=== PATIENT | female | born 1975 | race Caucasian/White ===

== ENCOUNTER 2016-11-26 06:57 | Inpatient (IN) | payer SELFPAY ==
[~2016-11-26] VITALS: Ht 170.2 cm; Wt 81.0 kg
[~2016-11-26 06:57] MED LIST: PREN0.01 PO; VENTAER INH; ZOVI400T15 PO
[2016-11-26 07:42] VITALS: BP 121/79; PULSE 105
[2016-11-26 07:45] VITALS: RESP 17
[2016-11-26] MEDS ORDERED: OXYTOCIN 30 UNITS-500ML PREMIX 500 ML ONE (08:22)
[2016-11-26] MEDS ORDERED: LACTATED RINGER'S 1000 ML INJ 1,000 ML IV PRN (08:25)
[2016-11-26] MEDS ORDERED: LACTATED RINGER'S 1000 ML INJ 1,000 ML IV SCH (08:25)
[2016-11-26] MEDS ORDERED: LIDOCAINE HCL 1% 50 ML VIAL I-DERMAL PRN (08:30)
[2016-11-26] MEDS ORDERED: LIDOCAINE HCL 1% 50 ML VIAL INFIL PRN (08:30)
[2016-11-26] MEDS ORDERED: SODIUM CHLORID 0.9% 500 ML INJ 500 ML IV PRN (08:30)
[2016-11-26] MEDS ORDERED: OXYTOCIN 30 UNITS-500ML PREMIX 500 ML IV ONE ×2 (08:30→14:00)
[2016-11-26] MEDS ORDERED: MINERAL OIL 10 ML VIAL TOPICAL PRN (08:30)
[2016-11-26] MEDS ORDERED: CITRIC ACID-SODIUM CITRATE LIQ 30 ML UDC PO SCH (08:30)
[2016-11-26] MEDS ORDERED: OXYTOCIN 30 UNITS-500ML PREMIX 500 ML IV SCH (08:30)
[2016-11-26 08:44] LABS: AUTOMATED NEUTROPHIL # 7.1 TH/MM3 (1.8-7.7); BASOPHIL % 0.3 % (0.0-2.0); EOSINOPHIL # 0.1 TH/MM3 (0-0.4); EOSINOPHIL % 0.6 % (0.0-4.0); HEMATOCRIT 34.3 % (35.0-46.0); HEMO FLAGS DIFF FINAL; LYMPHOCYTE # 1.2 TH/MM3 (1.0-4.8); MEAN CELL VOLUME 89.2 FL (80.0-100.0); MEAN CORPUSCULAR HEMOGLOBIN 30.9 PG (27.0-34.0); MEAN CORPUSCULAR HGB CONC 34.6 % (32.0-36.0); MONO % 6.2 % (0.0-8.0); NEUT % 79.9 % (16.0-70.0); PLATELET COUNT 165 TH/MM3 (150-450); RED BLOOD COUNT 3.84 MIL/MM3 (4.00-5.30); RED CELL DISTRIBUTION WIDTH 13.5 % (11.6-17.2); WHITE BLOOD COUNT 8.9 TH/MM3 (4.0-11.0)
[2016-11-26] MEDS ORDERED: SODIUM CHLOR 0.9% 1000 ML INJ 1,000 ML IV PRN (08:45)
[2016-11-26 08:47] LABS: BACTERIA, URINE OCC /hpf; BLOOD, URINE TRACE (NEG); COMMENT (UR) CULT NOT INDICATED; CULTURE IF INDICATED CULT NOT INDICATED; GLUCOSE,URINE NEG (NEG); KETONE, URINE NEG (NEG); NITRITE,URINE NEG (NEG); SQUAMOUS EPITHELIAL CELL URINE 8 /hpf (0-5); URINE COLOR LIGHT-YELLOW (YELLW/STRAW)
[2016-11-26] MEDS ORDERED: ACYC400T PO (09:34)
[2016-11-26] MEDS ORDERED: VENTAER INH (09:36)
[2016-11-26] MEDS ORDERED: ventolin INH (09:36)
--- NOTE | 2016-11-26 13:47 | PD.OB.DELI ---
Delivery Date: Nov 26, 2016 Anesthesia: Epidural Episiotomy: None Vaginal Delivery: Normal Presentation: Occiput anterior Nuchal Cord: None : Male One Minute : 9 Five Minute : 9 Weight: 3875g Care: Suctioned, Spontaneous crying, Responded to stimulation Placenta: Spontaneous delivery Laceration: Perineal laceration, 2 deg Repair: Vicryl running Additional Information QUICK DELIVERY OF BABY GWEN. BEAUTIFUL DELIVERY CORD DELAY 1 MINUTE Jackelyn Castro MD Nov 26, 2016 13:47
[2016-11-26] MEDS ORDERED: ZOLPIDEM TARTRATE 5 MG TAB PO PRN (14:00)
[2016-11-26] MEDS ORDERED: ONDANSETRON ODT 4 MG TAB PO PRN (14:00)
[2016-11-26] MEDS ORDERED: ALUMINUM/MAGNESIUM/SIMETH 30 ML CUP PO PRN (14:00)
[2016-11-26] MEDS ORDERED: WITCH HAZEL 50%/GLYCERIN 12.5% 40 PAD JAR TOPICAL PRN (14:00)
[2016-11-26] MEDS ORDERED: DOCUSATE SODIUM 50 MG/SENNA 8.6 MG TAB PO PRN (14:00)
[2016-11-26] MEDS ORDERED: BENZOCAINE 20% TOPICAL SPRAY 60 ML CAN TOPICAL PRN (14:00)
[2016-11-26] MEDS ORDERED: ACETAMINOPHEN 325 MG TAB PO PRN (14:00)
[2016-11-26] MEDS ORDERED: SODIUM CHLORIDE 0.9% FLUSH 5 ML FLUSH IV PRN (14:00)
[2016-11-26] MEDS ORDERED: oxyCODONE/ACETAMINOPHEN 5 MG/325 MG TAB PO PRN ×2 (14:00)
[2016-11-26] MEDS ORDERED: IBUPROFEN 600 MG TAB PO PRN (14:00)
[2016-11-26] MEDS ORDERED: DIPHTH/TETANUS/ACEL PERTUSSIS (BOOSTER) 0.5 ML VIAL/PFS IM ONE (16:00)
[2016-11-26] MEDS ORDERED: MEASLES, MUMPS, RUBELLA VACCINE 0.5 ML VIAL SQ ONE (16:00)
[2016-11-26] MEDS ORDERED: SODIUM CHLORIDE 0.9% FLUSH 5 ML FLUSH IV SCH (21:00)
[2016-11-27 07:30] VITALS: PULSE 76; RESP 18; TEMP 97.9
[2016-11-27] MEDS ORDERED: MULTIVIT/MIN/PREN/FOL AC/IRON PRENATAL TAB PO SCH (09:00)
--- NOTE | 2016-11-27 14:34 | HHI.OB ---
Subjective Post Day: 1 Objective Vitals/I&O Vital Signs Date Time Temp Pulse Resp B/P Pulse Ox O2 Delivery O2 Flow Rate FiO2 11/27/16 07:30 97.9 76 18 Objective Remarks GENERAL: Well-nourished, well-developed patient. CARDIOVASCULAR: Regular rate and rhythm without murmurs, gallops, or rubs. RESPIRATORY: Breath sounds equal bilaterally. No accessory muscle use. ABDOMEN/GI: Abdomen soft, non-tender. Fundus: Firm, non-tender at umbilicus. GENITOURINARY: Light to moderate bleeding. EXTREMITIES: No cyanosis or edema, non-tender, without signs of DVT. Medications and IVs Current Medications Medications (Trade) Dose Ordered Sig/Rupert Route Start Time Stop Time Status Last Admin (NS Flush) 2 ml BID IV 11/26/16 21:00 (NS Flush) 2 ml UNSCH PRN IV 11/26/16 14:00 (Tylenol) 650 mg Q4H PRN PO 11/26/16 14:00 (Motrin) 600 mg Q6H PRN PO 11/26/16 14:00 (Percocet 5-325 Mg) 1 tab Q4H PRN PO 11/26/16 14:00 (Percocet 5-325 Mg) 2 tab Q4H PRN PO 11/26/16 14:00 (Americaine 20% Top Spr) 1 spray Q4H PRN TOPICAL 11/26/16 14:00 (Tucks Pads) 1 applic QID PRN TOPICAL 11/26/16 14:00 (Shyann-Colace) 2 tab Q12H PRN PO 11/26/16 14:00 (Ambien) 5 mg HS PRN PO 11/26/16 14:00 (Mag-Al Plus Susp Liq) 15 ml Q8H PRN PO 11/26/16 14:00 (Zofran Odt) 4 mg Q6H PRN PO 11/26/16 14:00 (Stuartnatal Plus 3 ) 1 tab DAILY PO 11/27/16 09:00 Assessment/Plan Problem List: (1) Normal vaginal delivery Plan: routine Assessment and Plan pt doing well bonding with not taking any pain medication at this time, discussed motrin routine Discharge Planning dc home today Corina Baker Nov 27, 2016 14:34
--- NOTE | 2016-11-27 14:49 | HHI.DCPOC ---
Discharge Care Plan Diagnosis: (1) Normal vaginal delivery Your Health Problems Are: Vaginal delivery Report Symptoms to Your Doctor -Temperate above 100.5 degrees -Redness, of incision or excessive or foul smelling drainage -Unusual pain or calf pain -Increased vaginal bleeding -Painful or difficulty urinating -Feelings of extreme sadness or anxiety after 2 weeks Goals to Promote Your Health * To prevent worsening of your condition and complications * To maintain your health at the optimal level Directions to Meet Your Goals Take your medications as prescribed Follow your dietary instruction Follow activity as directed Ensure plenty of rest for recovery Drink fluids for hydration Keep your appointments as scheduled Take your immunizations and boosters as scheduled If your symptoms worsen call your PCP, if no PCP go to Urgent Care Center or Emergency Room Smoking is Dangerous to Your Health. Avoid second hand smoke Call the 24-hour crisis hotline for domestic abuse at Corina Baker Nov 27, 2016 14:49
--- NOTE | 2016-11-27 15:12 | HHI.DS ---
Admission Date Nov 26, 2016 at 06:57 Discharge Date: Nov 27, 2016 Admitting Diagnosis term Diagnosis: (1) Normal vaginal delivery Diagnosis: Principal Delivery Date: Nov 26, 2016 Vaginal Delivery: Normal : Male Brief History term induction Hospital Course routine Pt Condition on Discharge: Good Discharge Disposition: Discharge Home Discharge Instructions Diet Instructions: As Tolerated, No Restrictions Additional Diet Instructions: Drink at least 8 - 16 oz bottles of water a day Activities You Can Perform: Shower Only-No Bath Activities to Avoid: Lifting/Bending, Sexual Activity Additional Activity Instruc.: No driving until off pain medications Do not lift anything heavier than your baby in an carrier Follow up Referrals: [facility] - 2 Weeks @ [facility] [place] Continued Medications: () 1 TAB PO DAILY ([ventolin]) 100 MCG INH Q6HR PRN SHORTNESS OF BREATH Corina Baker Nov 27, 2016 15:12
== END 2016-11-27 19:56 | disposition home or self-care (01) | DRG 775 ==
LOC: H2EA 06:57 → H1EA 16:04
PROVIDERS: ADMIT Obstetrics & Gynecology; ATTEND Obstetrics & Gynecology
PROC: 0KQM0ZZ Repair Perineum Muscle, Open Approach (ICD-10-PCS; principal; 2016-11-26)
PROC: 10E0XZZ Delivery of Products of Conception, External Approach (ICD-10-PCS; 2016-11-26)
PROC: 00HU33Z Insertion of Infusion Device into Spinal Canal, Percutaneous Approach (ICD-10-PCS; 2016-11-26)
PROC: 3E0R3CZ (ICD-10-PCS; 2016-11-26)
DX: O70.1 Second degree perineal laceration during delivery (principal); Z37.0 Single live birth; Z3A.00 Weeks of gestation of pregnancy not specified
CPT/HCPCS: 59025; 81001; 85025; 86900; 86901; J2590